=== PATIENT | male | born 1960 | race Caucasian/White ===

== ENCOUNTER 2018-01-12 06:39 | Day surgery (SDC) | payer OTHER, SELFPAY ==
[2018-01-12 06:52] VITALS: BP 150/91; PULSE 74; RESP 16; TEMP 36.6; O2SAT 100; BMI 34.9
--- NOTE | 2018-01-12 07:35 | PCM.HP.STD ---
Problem List (1) Screen for colon cancer Status: Acute History of Present Illness Date of Admission: 01/12/18 The patient is a 57 year old M who presents for screening colonoscopy. Past Medical History Allergies No Known Allergies Allergy (Verified 01/09/18 15:52) Home Medications: Ambulatory Orders Medication Instructions Recorded Albuterol IH (ProAir) [Proair Hfa 1 - 2 puff INHALATION Q6H PRN PRN 01/09/18 (SP)Vent Pts] Fluticasone 0.05% [Flonase Nasal 1 spray NASAL DAILY 01/09/18 [place]] Naproxen 500 mg PO PRN PRN 01/09/18 Smoking Status: Current some day smoker Tobacco Use: Cigars - *Family History Maternal History Items: No pertinent history Review of Systems Cardiovascular: Denies: Chest Pain, Chest Pressure, Chest Tightness, Palpitations Respiratory: Denies: Cough, Hemoptysis, Shortness of breath at rest, Shortness of breath upon exertion, Wheezing Gastrointestinal: Denies: Abdominal Pain, Constipation, Diarrhea, Hematemesis, Nausea, Melena, Vomiting VTE Information - Inpt Only VTE Present on Admission: No VTE Mechan Device Prophylaxis: None VTE Pharm Prophylaxis ordered?: No Reason prophylaxis not ordered:: Treatment Not Indicated Patient Problems: Active and Suspected Problems Screen for colon cancer (Acute) - Physical Exam Lungs: Clear to auscultation Cardiovascular: Regular rate, Regular Rhythm, No murmurs Abdomen: Bowel Sounds Present, Soft, Non Tender, Non-Distended Vital Signs Temp Pulse Resp BP Pulse Ox 98 F 74 16 150/91 H 100 01/12/18 06:52 01/12/18 06:52 01/12/18 06:52 01/12/18 06:52 01/12/18 06:52 Oxygen Delivery Method Room Air Weight: 223 lb 1.725 oz Body Mass Index (BMI) 34.9 Assessment/Plan All Active Problems Screen for colon cancer (Acute) Plan is to perform a colonoscopy.
[2018-01-12 07:56] VITALS: BP 143/100; BP 150/91; PULSE 73; RESP 16; TEMP 36.7; O2SAT 98
--- NOTE | 2018-01-12 07:57 | OP.ENDO_ITS ---
Patient Name: Scott Crooks Procedure Date: 01/12/2018 7:31 AM Date of : 1960 Age: 57 Procedure: Colonoscopy Indications: Screening for colorectal malignant neoplasm Providers: Andrea Dubose MD Referring MD: Jacky Mcleod MD Medicines: See the Anesthesia note for documentation of the administered medications Patient Profile: Last Colonoscopy: none. The patient's first colonoscopy is today. Complications: No immediate complications. Procedure: Pre-Anesthesia Assessment: - Prior to the procedure, a History and Physical was performed, and patient medications and allergies were reviewed. The patient's tolerance of previous anesthesia was also reviewed. The risks and benefits of the procedure and the sedation options and risks were discussed with the patient. All questions were answered, and informed consent was obtained. Prior Anticoagulants: The patient has taken no previous anticoagulant or antiplatelet agents. ASA Grade Assessment: II - A patient with mild systemic disease. After reviewing the risks and benefits, the patient was deemed in satisfactory condition to undergo the procedure. After I obtained informed consent, the scope was passed under direct vision. Throughout the procedure, the patient's blood pressure, pulse, and oxygen saturations were monitored continuously. The colonoscope was introduced through the anus and advanced to the cecum, identified by appendiceal orifice and ileocecal valve. The colonoscopy was performed without difficulty. The patient tolerated the procedure well. The quality of the bowel preparation was good. Scope In: 7:41:31 AM Scope Withdrawal Time 0 hours 5 minutes 54 seconds Scope Out: 7:50:16 AM Total Procedure Duration Time 0 hours 8 minutes 45 seconds Findings: Hemorrhoids were found on perianal exam. Non-bleeding internal hemorrhoids were found during retroflexion. The hemorrhoids were mild and small. No biopsies or other specimens were collected for this exam. A few small-mouthed diverticula were found in the sigmoid colon. The exam was otherwise without abnormality. Impression: - Hemorrhoids found on perianal exam. - Non-bleeding internal hemorrhoids. No specimens collected. - Diverticulosis in the sigmoid colon. - The examination was otherwise normal. Recommendation: - Discharge patient to home. - Resume previous diet. - Continue present medications. - Repeat colonoscopy in 10 years for screening purposes. - Return to primary care physician PRN. Procedure Code(s): --- Professional --- 96995, Colonoscopy, flexible; diagnostic, including collection of specimen(s) by brushing or washing, when performed (separate procedure) Diagnosis Code(s): --- Professional --- Z12.11, Encounter for screening for malignant neoplasm of colon K64.8, Other hemorrhoids K57.30, Diverticulosis of large intestine without perforation or abscess without bleeding CPT copyright 2017 [employer]. All rights reserved. The codes documented in this report are preliminary and upon sole layer hand review may be revised to meet current compliance requirements. MD Andrea Mckeon MD 01/12/2018 7:57:00 AM This report has been signed electronically. Number of Addenda: 0 Note Initiated On: 01/12/2018 7:31 AM
[2018-01-12 08:00] VITALS: BP 145/84; BP 150/91; PULSE 74; RESP 16; O2SAT 96
[2018-01-12 08:05] VITALS: BP 127/93; BP 150/91; PULSE 67; RESP 16; O2SAT 99
[2018-01-12 08:10] VITALS: BP 140/103; BP 150/91; PULSE 68; RESP 16; TEMP 36.3; O2SAT 98
[2018-01-12 08:28] VITALS: BP 150/91
== END 2018-01-12 08:40 | disposition home or self-care (01) ==
LOC: EN 06:41 → AC 06:43
PROVIDERS: Family Provider Family Medicine; PCP Family Medicine; Referring Provider Surgery; Visit Provider Surgery
PROC: 0DJD8ZZ Inspection of Lower Intestinal Tract, Via Natural or Artificial Opening Endoscopic (ICD-10-PCS; CPT 45378; principal; 2018-01-12 07:25)
DX: Z12.11 Encounter for screening for malignant neoplasm of colon (principal); K57.30 Diverticulosis of large intestine without perforation or abscess without bleeding; K64.8 Other hemorrhoids; J42 Unspecified chronic bronchitis; M51.36 Other intervertebral disc degeneration, lumbar region; F12.90 Cannabis use, unspecified, uncomplicated; F17.290 Nicotine dependence, other tobacco product, uncomplicated; Z72.89 Other problems related to lifestyle
CPT/HCPCS: 45378; J7120

== ENCOUNTER → 2020-02-03 07:49 | Outpatient (CLI) | payer OTHER, SELFPAY ==
--- NOTE | 2020-02-03 07:55 | ECHOD_ITS ---
Reason For Study: EVAL PULM HTN, SEVERE AGNES Procedure This was a 2D Doppler, Color Flow transthoracic echocardiogram. Exam performed in department. Left Ventricle Normal LV size. The estimated ejection fraction is 60 %. No evidence for diastolic dysfunction. No regional wall motion abnormalities noted. Right Ventricle Normal RV size. Normal systolic function. Atria Normal left atrium. Normal right atrium. No doppler evidence for ASD. Mitral Valve There is no mitral valve stenosis. No mitral valve insufficiency. Tricuspid Valve There is no tricuspid stenosis. Trivial tricuspid valve insufficiency. Pulmonary artery systolic pressure is 30 mmHg. Aortic Valve Mild diffuse aortic valve thickening. Mild aortic stenosis. No aortic valve insufficiency. Pulmonic Valve There is no pulmonic valvular stenosis. No pulmonic valve insufficiency. Great Vessels Normal aortic root. Pericardium/Pleural No pericardial effusion. MMode/2D Measurements & Calculations LVIDd: 5.2 cm IVSd: 1.00 cm LVOT diam: 2.0 cm LVIDs: 3.6 cm LVPWd: 1.0 cm LVOT area: 3.2 cm2 RVDd: 3.7 cm FS: 30.5 % Ao root diam: 3.4 cm LAV(MOD-bp): 59.9 ml LVAd ap4: 35.5 cm2 LAV(MOD-bp) Indexed: 27.6 ml/m2 EDV(MOD-sp4): 124.2 ml LAV(MOD-sp2): 58.7 ml EDV(sp4-el): 127.9 ml LAV(MOD-sp4): 58.5 ml LVAs ap4: 18.5 cm2 ESV(MOD-sp4): 43.3 ml ESV(sp4-el): 44.9 ml EF(MOD-sp4): 65.2 % EF(sp4-el): 64.9 % SV(MOD-sp4): 81.0 ml SV(sp4-el): 83.1 ml LA A4 area: 21.3 cm2 LA dimension(2D): 3.9 cm RA A4 area: 19.9 cm2 Time Measurements MV dec time: 0.25 sec Doppler Measurements & Calculations MV E max stewart: 97.4 cm/sec Lat Peak E' Stewart: 11.3 cm/sec Med Peak E' Stewart: 9.9 cm/sec MV A max stewart: 130.2 cm/sec E/E' lat: 8.6 E/E' med: 9.8 MV E/A: 0.75 Ao V2 max: 252.9 cm/sec LV V1 max: 147.2 cm/sec SV(LVOT): 113.0 ml Ao max P.6 mmHg LV V1 max P.7 mmHg Ao V2 mean: 176.6 cm/sec LV V1 mean P.3 mmHg Ao mean P.2 mmHg LV V1 mean: 95.0 cm/sec Ao V2 VTI: 52.6 cm LV V1 VTI: 35.8 cm KIANA(I,D): 2.1 cm2 KIANA(V,D): 1.8 cm2 PA V2 max: 121.8 cm/sec TR max stewart: 251.4 cm/sec TR max P.3 mmHg Interpretation Summary The estimated ejection fraction is 60 %. No evidence for diastolic dysfunction. Mild aortic stenosis. Ordering Physician: Mendoza Retana Referring Physician: NUPUR MONET Performed By: Akua Yepez RDCS
== END ==
PROVIDERS: PCP Family Medicine; Referring Provider Internal Medicine Pulmonary Disease; Visit Provider Internal Medicine Pulmonary Disease
DX: I27.20 Pulmonary hypertension, unspecified (principal); G47.33 Obstructive sleep apnea (adult) (pediatric)
CPT/HCPCS: 93306

== ENCOUNTER 2021-06-20 07:57 | Outpatient (CLI) | payer OTHER, SELFPAY ==
[2021-06-20 10:42] LABS: AST(SGOT) 23 U/L (15-37); Alanine Aminotransfer ALT/SGPT 32 U/L (16-61); Albumin, Serum 3.8 g/dL (3.2-5.0); Alkaline Phosphatase 77 U/L (45-117); Anion Gap 5 (5-15); BUN 21 mg/dL (7-18); BUN/Creat Ratio 21.4 RATIO (10-20); Calcium,Total 9.7 mg/dL (8.5-10.1); Chloride 101 mmol/L (98-107); Cholesterol 215 mg/dL (200); Creatinine, Serum 0.98 mg/dL (0.70-1.30); EST Glomerular Filtration Rate 83 mL/min (>60); Est Glom Filt Rate - Afr Amer 100 mL/min (>60); Globulin 3.9 g/dL (2.2-4.2); Glucose 114 mg/dL (74-106); High Density Lipoprotein 90 mg/dL; Potassium 3.7 mmol/L (3.5-5.1); Protein, Total 7.7 g/dL (6.4-8.2); Sodium Level 136 mmol/L (136-145); Triglycerides 49 mg/dL; Very Low Density Lipoprotein 10 mg/dL (5-40)
== END 2021-06-20 23:59 | disposition home or self-care (01) ==
PROVIDERS: PCP Registered Nurse; Referring Provider Registered Nurse; Visit Provider Registered Nurse
DX: I10 Essential (primary) hypertension (principal)
CPT/HCPCS: 36415; 80053; 80061

== ENCOUNTER → 2022-01-29 | Outpatient (CLI) | payer OTHER, SELFPAY ==
[2022-01-29 10:36] LABS: Vitamin D,25 Hydroxy 29.5 ng/mL
[2022-01-29 10:48] LABS: Anion Gap 5 (5-15); BUN 17 mg/dL (7-18); BUN/Creat Ratio 18.5 RATIO (10-20); Calcium,Total 9.6 mg/dL (8.5-10.1); Chloride 104 mmol/L (98-107); Cholesterol 246 mg/dL (200); Creatinine, Serum 0.92 mg/dL (0.70-1.30); EST Glomerular Filtration Rate 89 mL/min (>60); Est Glom Filt Rate - Afr Amer 108 mL/min (>60); Glucose 115 mg/dL (74-106); High Density Lipoprotein 109 mg/dL; PSA,Total - Annual Screen 1.41 ng/mL (0.00-4.00); Potassium 3.9 mmol/L (3.5-5.1); Sodium Level 138 mmol/L (136-145); Triglycerides 75 mg/dL; Very Low Density Lipoprotein 15 mg/dL (5-40)
== END | disposition home or self-care (01) ==
LOC: MTLAB 08:13
PROVIDERS: PCP Family Medicine; Referring Provider Family Medicine; Visit Provider Family Medicine
DX: Z00.00 Encounter for general adult medical examination without abnormal findings (principal); Z12.5 Encounter for screening for malignant neoplasm of prostate; I10 Essential (primary) hypertension
CPT/HCPCS: 36415; 80048; 80061; 82306; 84153; G0103

== ENCOUNTER → 2022-02-07 | Outpatient (CLI) | payer OTHER, SELFPAY ==
--- NOTE | 2022-02-07 15:28 | RAD_ITS ---
STUDY: X-RAY - LUMBOSACRAL SPINE REASON FOR EXAM: Male, 61 years old. Sciatica. TECHNIQUE: 7 view(s) of the lumbosacral spine were obtained. COMPARISON: None FINDINGS: There is straightening of the normal lumbar lordosis. There is no substantial scoliosis. There is normal alignment of the vertebrae. There is no alteration of alignment with flexion or extension. There is diffuse demineralization with multi-level endplate spondylosis. Normal disc space heights. Question mild compressive changes. Endplate of L3 which are age indeterminate. No other evidence of fracture or subluxation. Normal bilateral sacral ala, sacroiliac joints, and visualized sacrum. Normal visualized soft tissue structures. RAD/L/S Spine w Bend Min 6 Vw IMPRESSION: 1. Degenerative changes of the lumbar spine. 2. Age-indeterminate compression deformity of superior endplate of L3. 3. No evidence of vertebral instability. Electronically Signed: Kirt Anaya DO at 18:42 EDT ,
== END | disposition home or self-care (01) ==
LOC: MTRAD 15:28
PROVIDERS: PCP Family Medicine; Referring Provider Family Medicine; Visit Provider Family Medicine
DX: M54.30 Sciatica, unspecified side (principal)
CPT/HCPCS: 72114

== ENCOUNTER → 2022-03-11 | Outpatient (CLI) | payer OTHER, SELFPAY ==
--- NOTE | 2022-03-11 16:22 | MRI_ITS ---
STUDY: MRI LUMBAR SPINE WITHOUT CONTRAST REASON FOR EXAM: Male, 61 years old. Right buttock pain radiating down right leg. TECHNIQUE: Standardized fat and water weighted pulse sequences were obtained in the sagittal and axial planes. COMPARISON: Radiographs 02/07/2022 FINDINGS: Mild right scoliosis centered at L3. Mild degenerative retrolisthesis of L2 on L3, L3 on L4, L4-L5, and L5 on S1. No fracture or acute osseous abnormality. Disc space loss with endplate degenerative signal changes and irregularity particularly at L2-3, L4-5 and L5-S1. Anatomic variant apophyseal remnant anterior upper corner of L5. Marked facet degeneration from at L4-5 and L5-S1. CONUS terminates at the level of the mid L1 vertebral body with normal contour and signal. At T12-L1, right-sided disc protrusion mildly narrows the right aspect of the spinal canal and right foramen. At L1 to, small disc bulge and moderate facet degeneration causes no significant narrowing. At L2-3, diffuse disc bulge with mild degenerative retrolisthesis, and moderate facet degeneration causes mild narrowing of the spinal canal and foramina. Disc abuts the traversing bilateral L3 nerve roots in the subarticular zones but without compression. At L3-4, large diffuse disc bulge, mild degenerative retrolisthesis, and severe right and moderate left facet degeneration causes mild spinal canal narrowing. Disc abuts but does not compress the traversing bilateral L4 nerve roots in the subarticular zones. Mild bilateral foraminal narrowing. At the level of the L4 vertebral body, asymmetric prominence of anterior epidural fat on the left extends inferiorly into and moderately narrows the left subarticular zone of L4-5, displacing posteriorly and possibly compressing the traversing left L5 nerve root. Immediately inferior to this, at L4-5, a large diffuse disc bulge and marked bilateral facet degeneration causes moderate narrowing of the spinal canal with crowding of the cauda equina but incomplete effacement of CSF. Disc and ligamentum flavum causes high-grade narrowing of the bilateral subarticular zones compressing the traversing bilateral L5 nerve roots. A right paracentral disc sequestration arising from L4-5 extends inferiorly and to the right along the right posterior aspect of the L5 vertebral body, moderately narrowing the right lateral recess, and extending inferiorly and to the right into the right L5-S1 foramen. Here it combines with vertebral body and facet osteophytes to cause high-grade narrowing of this foramen, compressing the exiting right L5 nerve root. Only mild narrowing of the left subarticular zone and left foramen. Paraspinal soft tissues are unremarkable. MRI/Spine Lumbar (Routine) IMPRESSION: A sequestered disc fragment arising from the L4-5 disc extends along the right posterior aspect of the L5 vertebral body, inferiorly and to the patient''s right, into the right L5-S1 foramen where it combines with vertebral body and facet osteophytes to cause high-grade foraminal narrowing, compressing the exiting right L5 nerve root. Above this, at the level of L4-5, a large disc bulge and marked facet degeneration causes moderate narrowing of the spinal canal and high-grade narrowing of both subarticular zones, compressing the traversing bilateral L5 nerve roots. The sequestered disc also moderately narrows the right L5 lateral recess. Just above the L4-5 disc, asymmetric prominence of the left anterior epidural fat contributes to narrowing of the more inferior left L4-5 subarticular zone. Prominent disc and facet degeneration at other levels but with less severe narrowing as outlined in detail above. Electronically Signed: Fernandez Santiago MD at 23:36 EST Reading Location ID and State: [facility] [place] Tel , Service support ,
== END | disposition home or self-care (01) ==
PROVIDERS: PCP Family Medicine; Referring Provider Anesthesiology Pain Medicine; Visit Provider Anesthesiology Pain Medicine
DX: M54.16 Radiculopathy, lumbar region (principal)
CPT/HCPCS: 72148

== ENCOUNTER 2022-03-20 15:30 | Outpatient (RCR) | payer OTHER, SELFPAY ==
--- NOTE | 2022-02-18 16:51 | HP.PTEVAL_ITS ---
Patient's Visit Information CARLOS THOMAS is a 61 year old M referred to Physical Therapy by Dr. Siddhartha Chou MD with a diagnosis of Sciatica. Date of Evaluation: 02/18/22 Physical Therapist: Carlos Weinstein, PT, ATC - Visit Plan Frequency: 2-3x /Week Duration: 4 Weeks Plan: SKTC/DKTC, core stab ex's in neutral, postural edu, and HEP - Subjective Pt reports he has had chronic LBP for years. Pt reports 3 months ago, he was splitting wood when he really hurt his LB. Pt notes he has had x-rays which revealed degenerative changes and a compression deformity. Pt reports he is going to get an MRI soon. Pt notes he has R LE radiculopathy that extends all the way to his feet which is constant in nature. Pt reports he has significant sleep difficulty secondary to pain. Pt reports if he sits the wrong way his pain will worsen. 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 Pt reports he is an avid golfer and is unable to golf at this time. Pt reports his pain is always worse in the morning when waking up. 7/10 pain while sitting here at rest, 10/10 pain at worst (in the morning) - Pain LBP Pain Intensity (Out of 10): 7 Pain Intensity Range: 10 - Objective Neuro: B LE sensation is WNL to light touch. B patellar reflex= 2/3. MMT: B LE's are grossly 5/5 throughout. Gait: Pt ambulated 200 feet today without difficulty, but noted increased pain about half way through it. ROM: Pt is severely limited with ext ROM. All other ranges are WNL. Repeated movements: SKTC/DKTC both decrease pain at this time - Balance/Special Test Scores Oswestry Low Back Score: 12 - Goals Goal 1:: Decrease LBP x 50% to aid with sleep Goal Time Frame: 4-6 Weeks Goal 2:: Increase L/S ROM x 1 grade to aid with IADL's Goal Time Frame: 4-6 Weeks Goal 3:: I with HEP Goal Time Frame: 4-6 Weeks - Rehabilitation Potential Physical Therapy Diagnosis: Pt has LBP, limited ROM, and R LE radiculopathy secondary to degenerative changes to the L/S Rehabilitation Potential: Good - Anticipated Interventions Patient/Client Instruction: Educate patient on: Condition, Plan of Care For the Purpose of:: To improve self management Therapeutic Exercise to Include: Strength training, Body mechanics, Postural training, Active ROM, Dynamic Lumbar Stabilization For the Purpose of:: To decrease pain, To improve muscle performance and motor function Cryotherapy (ice pack, ice massage): Yes For the Purpose of:: To decrease pain Thank you for the opportunity to evaluate your patient. For Medicare and Medicare HMO plans, please review the plan of care and approve it. It will need to be FAXED BACK to us at [phone] for Medicare purposes. For Medicare only, by signing this I certify the plan of care. Please let me know if there are questions or concerns regarding this plan of care. Physician Signature: Date:
--- NOTE | 2022-03-20 15:58 | HP.PTDCSUM ---
It has been my pleasure to treat CARLOS THOMAS referred by Dr. Siddhartha Chou MD, with the diagnosis of Sciatica for a total of 8 visit(s). Discharge Date: Please see the following information for a summary of their discharge status. Subjective: I think I am ready to be done with PT. LBP Pain Intensity (Out of 10): 2 % Improvement: 60 Objective/Function: LBP ranges from 2-5/10. L/S ROM is WNL in all planes. Pt is I with HEP. Rx goals achieved Goal 1:: Decrease LBP x 50% to aid with sleep Goal Progress: Goal Met Goal 2:: Increase L/S ROM x 1 grade to aid with IADL's Goal Progress: Goal Met Goal 3:: I with HEP Goal Progress: Goal Met Plan: SKTC/DKTC, core stab ex's in neutral, postural edu, and HEP If there are questions or concerns regarding this patient's physical therapy, please feel free to call me at [phone]. Thank you for the referral of this patient. Sincerely, Carlos Weinstein, PT, ATC Balance/Gait/Functional tests - Balance/Special Test Scores Oswestry Low Back Score: 0
== END 2022-03-20 19:00 | disposition home or self-care (01) ==
LOC: PT 15:30
PROVIDERS: PCP Family Medicine; Referring Provider Family Medicine; Visit Provider Family Medicine
DX: M54.30 Sciatica, unspecified side (principal)
CPT/HCPCS: 97110; 97161; 97164; 97530

== ENCOUNTER → 2023-01-30 | Outpatient (CLI) | payer OTHER, SELFPAY ==
[2023-01-30 18:12] LABS: Hemoglobin A1c 5.5 % (3.8-5.6)
[2023-01-30 18:16] LABS: Vitamin D,25 Hydroxy 29.2 ng/mL
== END | disposition home or self-care (01) ==
LOC: MTLAB 16:30
PROVIDERS: PCP Family Medicine; Referring Provider Family Medicine; Visit Provider Family Medicine
DX: E55.9 Vitamin D deficiency, unspecified (principal); R73.09 Other abnormal glucose
CPT/HCPCS: 36415; 82306; 83036

== ENCOUNTER → 2023-06-25 | Outpatient (CLI) | payer OTHER, SELFPAY ==
--- NOTE | 2023-06-25 11:54 | NEURO ---
NCS and/or EMG Patient Report Ordering Doctor: Tino Norris DATE OF SERVICE: 06/25/23 Scott presents for electrodiagnostic testing of the upper limbs. He reports numbness and tingling in both hands, worse over the past year. Electrodiagnostic findings: Median motor nerve bilaterally demonstrates prolonged distal latency with normal amplitude and reduced conduction velocity. Ulnar motor response within normal limits bilaterally. Normal median and ulnar F?waves. Prolonged median sensory latency at the wrist bilaterally. Needle EMG testing was performed in the upper limbs. All muscles tested showed no evidence of denervation with normal motor unit action potentials. Electrodiagnostic impression: This is an abnormal study in the upper limbs. 1. Electrodiagnostic findings demonstrate bilateral median mononeuropathy. This is consistent with a moderate bilateral carpal tunnel syndrome. 2. No electrodiagnostic evidence is noted for cervical radiculopathy. Multi Select Codes Neurology Neurology Interp Codes: 38446-90 Musc test done w/n test comp (interp) (2) and 67661-24 Nrv cndj test 11-12 studies (interp)
== END | disposition home or self-care (01) ==
LOC: PSN 09:08
PROVIDERS: PCP Family Medicine; Referring Provider Orthopaedic Surgery; Visit Provider Orthopaedic Surgery
DX: G56.01 Carpal tunnel syndrome, right upper limb (principal)
CPT/HCPCS: 95886; 95911

== ENCOUNTER → 2023-08-05 | Outpatient (CLI) | payer OTHER, SELFPAY ==
[2023-08-05 09:56] LABS: Absolute Lymphocyte Count 1.61 X10^3/uL (0.83-4.51); Absolute Neutrophil Count 3.1 X10^3/uL (2.0-7.7); Basophil# 0.03 X10^3/uL; Basophil% 0.6 % (0-1); Eosinophil# 0.11 X10^3/uL; Hematocrit 40.4 % (40-54); Hemoglobin 13.9 g/dL (13.0-16.5); Lymphocyte # 1.61 X10^3/ul (0.83-4.51); Lymphocyte % 29.9 % (19-41); Mean Corp Hgb Conc 34.4 g/dL (32-36); Mean Corpuscular Hgb 31.6 pg (27.0-32.0); Mean Corpuscular Volume 91.8 fL (80-94); Mean Platelet Vol. 11.9 fl (6.2-12.0); Monocyte# 0.54 X10^3/uL; NRBC Flagged by Analyzer 0 % (0-5); Neutrophil # 3.07 X10^3/uL (2.7-7.7); Neutrophil % 57.1 % (47-70); Platelet Count 197 K/mm3 (150-450); RBC Distribution Width CV 12.4 % (11.6-14.6); RBC Distribution Width SD 41.9 fl (35.1-43.9); White Blood Count 5.4 K/mm3 (4.4-11.0)
[2023-08-05 10:25] LABS: AST(SGOT) 17 U/L (15-37); Alanine Aminotransfer ALT/SGPT 25 U/L (16-61); Albumin, Serum 3.8 g/dL (3.2-5.0); Alkaline Phosphatase 69 U/L (45-117); Anion Gap 4 (5-15); BUN 21 mg/dL (7-18); BUN/Creat Ratio 22.5 RATIO (10-20); Calcium,Total 9.1 mg/dL (8.5-10.1); Chloride 102 mmol/L (98-107); Cholesterol 181 mg/dL (200); Creatinine, Serum 0.94 mg/dL (0.70-1.30); EST Glomerular Filtration Rate 87 mL/min (>60); Est Glom Filt Rate - Afr Amer 105 mL/min (>60); Globulin 3.7 g/dL (2.2-4.2); Glucose 108 mg/dL (74-106); High Density Lipoprotein 82 mg/dL; PSA,Total - Annual Screen 0.93 ng/mL (0.00-4.00); Protein, Total 7.5 g/dL (6.4-8.2); Sodium Level 136 mmol/L (136-145); Triglycerides 53 mg/dL; Very Low Density Lipoprotein 11 mg/dL (5-40)
== END | disposition home or self-care (01) ==
LOC: MTLAB 08:59
PROVIDERS: PCP Family Medicine; Referring Provider Family Medicine; Visit Provider Family Medicine
DX: I10 Essential (primary) hypertension (principal); Z12.5 Encounter for screening for malignant neoplasm of prostate
CPT/HCPCS: 36415; 80053; 80061; 84153; 85025; G0103

== ENCOUNTER → 2024-02-25 | Outpatient (CLI) | payer OTHER, SELFPAY ==
--- NOTE | 2024-02-25 10:15 | FORE_PTH ---
PAT[facility]: [id number] AGE/SX: 63/M ROOM: RE02/25/[address]: Dr. Romero Paniagua DO : 1960 BED: DIS: 02/25/2024 SPEC #: [id number] RECD: 02/25/24 14:35 STATUS: ROBIN KOURTNEYMena #: [id number] JESSICA: 02/25/24 10:[address]: Romero Paniagua DEPT: SURGICAL PATHOLOGY RECD BY: Migdalia Tucker ENTERED: 02/26/24 08:15 SP TYPE: FOREIGN B OTHR DR: Grabiel Carpenter MD Tissues: FOREIGN BODY Procedures: Surgery Specimen Level I HEADER OPERATION: Left endoscopic carpal tunnel release PRE-OP DIAGNOSIS: Left carpal tunnel syndrome TISSUE SUBMITTED: Left upper back - TICK MICROSCOPIC DIAGNOSIS Tick removed from left upper back, removal: Ixodid tick. See comment. [facility] 03/01/2024 COMMENT The gross features are consistent with a deer tick. The mouth parts are missing and precludes further evaluation. Clinical correlation is suggested. MICROSCOPIC DESCRIPTION Slides are reviewed. GROSS DESCRIPTION Received in fixative is one container labeled with the patient's name and designated Tick arthropod. The specimen consists of a dark-cole tick measuring 0.5 x 0.4 x 0.2mm. The specimen is fixed on the slide and viewed under microscopy. [facility] 03/01/2024 CPT:86504
[2024-03-02 07:46] LABS: Arthropod ID POSITIVE (NEGATIVE)
== END | disposition home or self-care (01) ==
LOC: LABSPEC 14:47
PROVIDERS: PCP Family Medicine; Referring Provider Student in an Organized Health Care Education/Training Program; Visit Provider Student in an Organized Health Care Education/Training Program
DX: G56.02 Carpal tunnel syndrome, left upper limb (principal)
CPT/HCPCS: 87168; 88300

== ENCOUNTER → 2025-02-02 | Outpatient (CLI) | payer OTHER, SELFPAY ==
[2025-02-02 10:27] LABS: Hematocrit 41.3 % (40-54); Hemoglobin 14.0 g/dL (13.0-16.5); Immature Granulocytes Count 0.010 X10^3/uL (0.0-0.0); Mean Corp Hgb Conc 33.9 g/dL (32-36); Mean Corpuscular Volume 90.8 fL (80-94); Mean Platelet Vol. 12.4 fl (6.2-12.0); NRBC Flagged by Analyzer 0 % (0-5); Platelet Count 186 K/mm3 (150-450); RBC Distribution Width CV 13.0 % (11.6-14.6); RBC Distribution Width SD 42.9 fl (35.1-43.9); Red Blood Count 4.55 M/mm3 (4.6-6.2); White Blood Count 5.8 K/mm3 (4.4-11.0)
[2025-02-02 11:04] LABS: AST(SGOT) 21 U/L (<=37); Alanine Aminotransfer ALT/SGPT 19 U/L (<=46); Albumin, Serum 4.2 g/dL (3.4-4.8); Alkaline Phosphatase 78 U/L (40-129); Anion Gap 10 (5-15); BUN 25 mg/dL (4-19); BUN/Creat Ratio 28.0 RATIO (10-20); Calcium,Total 9.7 mg/dL (7.6-11.0); Carbon Dioxide 26.3 mmol/L (21.0-32.0); Chloride 103 mmol/L (98-108); Cholesterol 175 mg/dL (<=200); Globulin 3.0 g/dL (2.2-4.2); Glucose 109 mg/dL (70-99); Low Density Lipoprotein Calc. 92 mg/dL; PSA,Total - Annual Screen 1.32 ng/mL (0.02-4.00); Potassium 4.2 mmol/L (3.3-5.1); Triglycerides 44 mg/dL; Very Low Density Lipoprotein 9 mg/dL (5-40); Vitamin D,25 Hydroxy 37.5 ng/mL (30-100); cholesterol:hdl ratio screen 2.37
== END | disposition home or self-care (01) ==
LOC: MTLAB 08:41
PROVIDERS: PCP Family Medicine; Referring Provider Family Medicine; Visit Provider Family Medicine
DX: Z13.1 Encounter for screening for diabetes mellitus (principal); I10 Essential (primary) hypertension; Z12.5 Encounter for screening for malignant neoplasm of prostate
CPT/HCPCS: 36415; 80053; 80061; 82306; 83036; 84153; 85025; G0103